=== PATIENT | female | born 1955 | race Asian ===

== ENCOUNTER 2016-03-05 14:12 | Emergency (ER) | payer OTHER ==
[~2016-03-05] VITALS: Ht 167.6 cm; Wt 73.5 kg
[~2016-03-05 14:12] MED LIST: ACET7.5T70 PO; ALBUTEROL0.083 % IN; ALLEGRA ALRG180 M1 OR; ALLEGRA PO; AMOX500C85 PO; BENZ100C8 PO; CYCL10TA35 PO; DOCU100C10 PO; FLONASE0.05 %; IPRASOL5 IN; KETOROLAC15 MG/ML IJ; LEVO0.2T35 PO; LISI20TA24 PO; MONT10TA PO; PRED20TA27 PO
[2016-03-05 14:44] VITALS: BP 126/73; TEMP 98.4
== END 2016-03-05 15:00 | disposition home or self-care (01) ==
LOC: ED 14:12
DX: R03.1 Nonspecific low blood-pressure reading (principal)

== ENCOUNTER 2016-03-21 10:37 | Outpatient (CLI) | payer OTHER | END 2016-03-21 12:00 | disposition home or self-care (01) | LOC: RAD 10:37 | DX: R06.02 Shortness of breath (principal) ==

== ENCOUNTER 2016-03-28 10:34 | Outpatient (CLI) | payer OTHER | END 2016-03-28 23:02 | disposition home or self-care (01) | LOC: RAD 10:34 | DX: M85.89 Other specified disorders of bone density and structure, multiple sites (principal) ==

== ENCOUNTER 2016-04-25 11:47 | Outpatient (CLI) | payer OTHER | END 2016-04-25 19:53 | disposition home or self-care (01) | LOC: RESP 11:47 | DX: R06.02 Shortness of breath (principal) | CPT/HCPCS: 94664 ==

== ENCOUNTER 2016-05-05 12:45 | Outpatient (CLI) | payer OTHER | END 2016-05-05 21:06 | disposition home or self-care (01) | LOC: RESP 12:45 | DX: R06.09 Other forms of dyspnea (principal) | CPT/HCPCS: 93306 ==

== ENCOUNTER 2016-05-08 10:10 | Outpatient (CLI) | payer OTHER | END 2016-05-08 18:59 | disposition home or self-care (01) | LOC: LABW 10:10 | DX: E03.8 Other specified hypothyroidism (principal) | CPT/HCPCS: 36415; 84436; 84443; 84479 ==

== ENCOUNTER 2016-08-11 09:02 | Outpatient (CLI) | payer OTHER ==
[2016-08-11 11:04] LABS: PLATELET COUNT 253 K/uL (152-353)
[2016-08-11 11:23] LABS: POTASSIUM 3.8 mmol/L (3.6-5.2)
== END 2016-08-11 10:45 | disposition home or self-care (01) ==
LOC: LABW 09:02
DX: R94.2 Abnormal results of pulmonary function studies (principal); E55.9 Vitamin D deficiency, unspecified; M32.8 Other forms of systemic lupus erythematosus; M35.01 Sjogren syndrome with keratoconjunctivitis; M72.2 Plantar fascial fibromatosis; M85.89 Other specified disorders of bone density and structure, multiple sites
CPT/HCPCS: 36415; 80053; 85027; 93306

== ENCOUNTER 2016-09-08 18:59 | Outpatient (CLI) | payer OTHER ==
[2016-09-08 19:20] LABS: PLATELET COUNT 258 K/uL (152-353)
[2016-09-08 19:36] LABS: POTASSIUM 3.6 mmol/L (3.6-5.2)
== END 2016-09-08 20:00 | disposition home or self-care (01) ==
LOC: LABW 18:59
DX: M32.8 Other forms of systemic lupus erythematosus (principal); E55.9 Vitamin D deficiency, unspecified; M35.01 Sjogren syndrome with keratoconjunctivitis; M72.2 Plantar fascial fibromatosis; M85.89 Other specified disorders of bone density and structure, multiple sites
CPT/HCPCS: 80053; 85027

== ENCOUNTER 2016-10-09 14:00 | Outpatient (CLI) | payer OTHER | END 2016-10-09 19:20 | disposition home or self-care (01) | LOC: LABW 14:00 | DX: E03.8 Other specified hypothyroidism (principal) | CPT/HCPCS: 36415; 84439; 84443; 84479 ==

== ENCOUNTER 2016-12-19 10:46 | Outpatient (CLI) | payer OTHER | END 2016-12-19 11:50 | disposition home or self-care (01) | LOC: LABW 10:46 | DX: E03.8 Other specified hypothyroidism (principal) | CPT/HCPCS: 36415; 84436; 84443; 84479 ==

== ENCOUNTER 2017-04-13 11:01 | Outpatient (CLI) | payer OTHER ==
[2017-04-13 11:57] LABS: PLATELET COUNT 249 K/uL (152-353)
[2017-04-13 12:23] LABS: POTASSIUM 3.7 mmol/L (3.6-5.2)
== END 2017-04-13 22:21 | disposition home or self-care (01) ==
LOC: LAB 11:01
PROVIDERS: Nurse Practitioner Family
DX: M25.50 Pain in unspecified joint (principal); K21.9 Gastro-esophageal reflux disease without esophagitis; Z00.00 Encounter for general adult medical examination without abnormal findings; Z79.899 Other long term (current) drug therapy
CPT/HCPCS: 80053; 80061; 82306; 83036; 84436; 84443; 85027

== ENCOUNTER 2017-05-17 11:36 | Outpatient (CLI) | payer OTHER | END 2017-05-17 22:26 | disposition home or self-care (01) | LOC: RAD 11:36 | DX: K59.09 Other constipation (principal); R11.0 Nausea | CPT/HCPCS: 74022 ==

== ENCOUNTER 2017-05-17 12:32 | Day surgery (SDC) | payer OTHER | END 2017-05-17 15:42 | disposition home or self-care (01) | LOC: OR 12:32 | PROC: 0DB68ZZ Excision of Stomach, Via Natural or Artificial Opening Endoscopic (ICD-10-PCS; principal; 2017-05-17) | PROC: 0DB88ZZ Excision of Small Intestine, Via Natural or Artificial Opening Endoscopic (ICD-10-PCS; 2017-05-17) | DX: K29.00 Acute gastritis without bleeding (principal); K21.0 Gastro-esophageal reflux disease with esophagitis; K29.80 Duodenitis without bleeding; R10.13 Epigastric pain; R11.0 Nausea; K59.09 Other constipation | CPT/HCPCS: 74022; J2001; J2704 ==

== ENCOUNTER 2017-05-23 13:55 | Outpatient (CLI) | payer OTHER | END 2017-05-23 21:58 | disposition home or self-care (01) | LOC: RAD 13:55 | DX: M32.8 Other forms of systemic lupus erythematosus (principal); R06.02 Shortness of breath; Z79.52 Long term (current) use of systemic steroids ==

== ENCOUNTER 2017-06-18 14:00 | Outpatient (CLI) | payer OTHER | END 2017-06-18 19:32 | disposition home or self-care (01) | LOC: LABW 14:00 | DX: E03.8 Other specified hypothyroidism (principal) | CPT/HCPCS: 84436; 84443; 84479 ==

== ENCOUNTER 2017-07-26 18:41 | Emergency (ER) | payer OTHER ==
[~2017-07-26] VITALS: Ht 167.6 cm; Wt 67.1 kg
[2017-07-26 19:08] LABS: PLATELET COUNT 233 K/uL (152-353)
[2017-07-26 19:19] LABS: POTASSIUM 3.6 mmol/L (3.6-5.2)
[2017-07-26 21:14] VITALS: BP 169/80; TEMP 98.7
== END 2017-07-26 20:42 | disposition home or self-care (01) ==
LOC: ED 18:41
DX: R06.09 Other forms of dyspnea (principal)
CPT/HCPCS: 36415; 80053; 83735; 83880; 85027; 85379; 93005; 94664; 99284

== ENCOUNTER 2017-08-03 10:35 | Emergency (ER) | payer OTHER ==
[~2017-08-03] VITALS: Ht 167.6 cm; Wt 67.1 kg
[2017-08-03 15:35] VITALS: BP 135/74; TEMP 98.2
== END 2017-08-03 15:57 | disposition home or self-care (01) ==
LOC: ED 10:35
DX: R06.02 Shortness of breath (principal); R63.4 Abnormal weight loss; N28.89 Other specified disorders of kidney and ureter; E03.8 Other specified hypothyroidism; I10 Essential (primary) hypertension
CPT/HCPCS: 36415; 82550; 84443; 84484; 93005; 99283; Q9963

== ENCOUNTER 2017-08-29 11:32 | Outpatient (CLI) | payer OTHER | END 2017-08-29 23:47 | disposition home or self-care (01) | LOC: LABW 11:32 | DX: E03.9 Hypothyroidism, unspecified (principal) | CPT/HCPCS: 36415; 84436; 84443; 84479 ==

== ENCOUNTER 2017-09-19 14:37 | Emergency (ER) | payer OTHER ==
[~2017-09-19] VITALS: Ht 167.6 cm; Wt 63.5 kg
[2017-09-19 14:45] VITALS: TEMP 97.7
[2017-09-19 16:49] LABS: POTASSIUM 4.1 mmol/L (3.6-5.2)
[2017-09-19 17:03] LABS: PLATELET COUNT 260 K/uL (152-353)
[2017-09-19 17:53] VITALS: BP 122/88
== END 2017-09-19 17:53 | disposition home or self-care (01) ==
LOC: ED 14:37
DX: E05.80 Other thyrotoxicosis without thyrotoxic crisis or storm (principal)
CPT/HCPCS: 36415; 80053; 81000; 84443; 85027; 93005; 99283

== ENCOUNTER 2017-09-25 13:02 | Outpatient (CLI) | payer OTHER ==
[2017-09-25 13:44] LABS: PLATELET COUNT 246 K/uL (152-353)
[2017-09-25 14:02] LABS: POTASSIUM 4.1 mmol/L (3.6-5.2)
== END 2017-09-25 21:16 | disposition home or self-care (01) ==
LOC: LAB 13:02
PROVIDERS: Nurse Practitioner Family
DX: M25.50 Pain in unspecified joint (principal); R11.0 Nausea; G89.29 Other chronic pain; Z00.00 Encounter for general adult medical examination without abnormal findings; R63.4 Abnormal weight loss; Z79.899 Other long term (current) drug therapy
CPT/HCPCS: 80053; 80061; 83036; 84436; 84443; 85027

== ENCOUNTER 2017-11-12 18:11 | Emergency (ER) | payer OTHER ==
[~2017-11-12] VITALS: Ht 167.6 cm; Wt 63.5 kg
[2017-11-12 18:55] LABS: PLATELET COUNT 254 K/uL (152-353)
[2017-11-12 19:05] LABS: POTASSIUM 3.8 mmol/L (3.6-5.2); SODIUM 143 mmol/L (136-145)
[2017-11-12 20:11] VITALS: BP 145/85; TEMP 97.7
== END 2017-11-12 20:11 | disposition home or self-care (01) ==
LOC: ED 18:11
PROVIDERS: Emergency Medicine
DX: S16.1XXA Strain of muscle, fascia and tendon at neck level, initial encounter (principal); M54.12 Radiculopathy, cervical region; R00.0 Tachycardia, unspecified
CPT/HCPCS: 36415; 80053; 82550; 84484; 85027; 93005; 99284

== ENCOUNTER 2017-11-20 11:12 | Outpatient (CLI) | payer OTHER ==
[2017-11-20 12:44] LABS: PLATELET COUNT 252 K/uL (152-353)
[2017-11-20 12:50] LABS: POTASSIUM 3.6 mmol/L (3.6-5.2)
== END 2017-11-20 19:56 | disposition home or self-care (01) ==
LOC: LABW 11:12
DX: M32.8 Other forms of systemic lupus erythematosus (principal); M35.01 Sjogren syndrome with keratoconjunctivitis; R53.83 Other fatigue; Z79.52 Long term (current) use of systemic steroids; Z79.899 Other long term (current) drug therapy
CPT/HCPCS: 36415; 80053; 81000; 85027; 85651; 86038; 86140; 86160; 86225; 86235; 87088

== ENCOUNTER 2017-11-24 13:17 | Outpatient (CLI) | payer OTHER ==
[2017-11-24 14:16] LABS: PLATELET COUNT 258 K/uL (152-353)
[2017-11-24 14:37] LABS: POTASSIUM 3.4 mmol/L (3.6-5.2)
== END 2017-11-24 19:26 | disposition home or self-care (01) ==
LOC: LABW 13:17
PROVIDERS: Internal Medicine Medical Oncology
DX: D64.9 Anemia, unspecified (principal); E53.8 Deficiency of other specified B group vitamins
CPT/HCPCS: 80053; 82525; 82607; 82728; 82746; 82784; 83010; 83540; 83550; 83883; 84165; 85027; 85044; 86880

== ENCOUNTER 2017-11-29 07:50 | Outpatient (CLI) | payer OTHER ==
[2017-11-29 08:14] LABS: PLATELET COUNT 232 K/uL (152-353)
[2017-11-29 08:59] LABS: POTASSIUM 3.8 mmol/L (3.6-5.2)
== END 2017-11-29 19:12 | disposition home or self-care (01) ==
LOC: LABW 07:50
PROVIDERS: Internal Medicine Endocrinology, Diabetes & Metabolism
DX: D64.9 Anemia, unspecified (principal); Z79.899 Other long term (current) drug therapy; E03.9 Hypothyroidism, unspecified
CPT/HCPCS: 36415; 80053; 84436; 84443; 84479; 85027

== ENCOUNTER 2017-12-08 10:51 | Outpatient (CLI) | payer OTHER | END 2017-12-08 19:28 | disposition home or self-care (01) | LOC: MRI 10:51 | DX: M25.512 Pain in left shoulder (principal); M54.12 Radiculopathy, cervical region ==

== ENCOUNTER 2018-01-02 10:31 | Outpatient (CLI) | payer OTHER | END 2018-01-02 22:25 | disposition home or self-care (01) | LOC: CT 10:31 | DX: D64.9 Anemia, unspecified (principal); R10.84 Generalized abdominal pain; D47.9 Neoplasm of uncertain behavior of lymphoid, hematopoietic and related tissue, unspecified | CPT/HCPCS: 36415; 82565; 84520; Q9963 ==

== ENCOUNTER 2018-04-03 08:45 | Outpatient (CLI) | payer OTHER | END 2018-04-03 23:11 | disposition home or self-care (01) | LOC: MAMMO 08:45 | DX: Z12.31 Encounter for screening mammogram for malignant neoplasm of breast (principal) ==

== ENCOUNTER 2018-05-17 08:46 | Outpatient (CLI) | payer OTHER | END 2018-05-17 19:14 | disposition home or self-care (01) | LOC: CT 08:46 | DX: R63.4 Abnormal weight loss (principal); M54.5 Low back pain | CPT/HCPCS: 36415; 82565; 84520; Q9963 ==

== ENCOUNTER 2018-05-29 16:06 | Outpatient (CLI) | payer OTHER | END 2018-05-29 22:51 | disposition home or self-care (01) | LOC: LABW 16:06 | DX: E03.8 Other specified hypothyroidism (principal) | CPT/HCPCS: 36415; 84436; 84443; 84479 ==

== ENCOUNTER 2019-02-27 21:35 | Emergency (ER) | payer OTHER ==
[~2019-02-27] VITALS: Ht 167.6 cm; Wt 69.9 kg
[2019-02-27 22:46] VITALS: BP 199/98; TEMP 98
== END 2019-02-27 22:46 | disposition home or self-care (01) ==
LOC: ED 21:35
DX: B02.9 Zoster without complications (principal)
CPT/HCPCS: 96372; 99282; J1885

== ENCOUNTER 2020-07-28 17:25 | Outpatient (CLI) | payer OTHER | END 2020-07-28 19:29 | disposition home or self-care (01) | LOC: LAB 17:25 → LABW 17:25 | PROVIDERS: ATTEND Internal Medicine Endocrinology, Diabetes & Metabolism | DX: E03.8 Other specified hypothyroidism (principal) | CPT/HCPCS: 36415; 84436; 84443; 84479 ==

== ENCOUNTER → 2020-11-22 | Outpatient (CLI) | payer OTHER | LOC: LABW 17:34 | PROVIDERS: ATTEND Internal Medicine Endocrinology, Diabetes & Metabolism | DX: E03.8 Other specified hypothyroidism (principal) | CPT/HCPCS: 36415; 84439; 84443 ==

== ENCOUNTER 2021-01-01 04:37 | Emergency (ER) | payer OTHER ==
[~2021-01-01] VITALS: Ht 167.6 cm; Wt 77.1 kg
[2021-01-01 05:34] VITALS: BP 165/94; TEMP 98.2
== END 2021-01-01 05:34 | disposition home or self-care (01) ==
LOC: ED 04:37
DX: J32.8 Other chronic sinusitis (principal); J06.9 Acute upper respiratory infection, unspecified; H61.22 Impacted cerumen, left ear; I10 Essential (primary) hypertension
CPT/HCPCS: 96372; 99283; 99284; J0696; J1100

== ENCOUNTER 2021-01-21 10:22 | Outpatient (CLI) | payer OTHER | END 2021-01-21 18:54 | disposition home or self-care (01) | LOC: LABW 10:22 | PROVIDERS: ATTEND Internal Medicine Endocrinology, Diabetes & Metabolism | DX: E03.8 Other specified hypothyroidism (principal) | CPT/HCPCS: 36415; 84439; 84443 ==

== ENCOUNTER 2021-10-28 10:09 | Outpatient (CLI) | payer OTHER | END 2021-10-28 20:51 | disposition home or self-care (01) | LOC: LABW 10:09 | PROVIDERS: ATTEND Internal Medicine Endocrinology, Diabetes & Metabolism | DX: E03.8 Other specified hypothyroidism (principal) | CPT/HCPCS: 36415; 84439; 84443 ==

== ENCOUNTER 2021-11-08 14:56 | Outpatient (CLI) | payer OTHER | END 2021-11-08 20:15 | disposition home or self-care (01) | LOC: LABW 14:56 | PROVIDERS: ATTEND Internal Medicine Endocrinology, Diabetes & Metabolism | DX: D64.9 Anemia, unspecified (principal) | CPT/HCPCS: 36415; 82607; 82728; 83540; 83550 ==

== ENCOUNTER 2021-11-17 20:56 | Emergency (ER) | payer OTHER ==
[~2021-11-17] VITALS: Ht 167.6 cm; Wt 69.9 kg
[2021-11-17 23:02] VITALS: BP 163/86; TEMP 98.2
== END 2021-11-17 23:02 | disposition home or self-care (01) ==
LOC: ED 20:56
DX: J20.9 Acute bronchitis, unspecified (principal); Z20.822 Contact with and (suspected) exposure to COVID-19
CPT/HCPCS: 87502; 87635; 87651; 99283; U0003

== ENCOUNTER 2022-01-26 08:36 | Outpatient (CLI) | payer OTHER | END 2022-01-26 19:02 | disposition home or self-care (01) | LOC: MAMMO 08:36 | PROVIDERS: ATTEND Nurse Practitioner Primary Care | DX: N64.4 Mastodynia (principal) | CPT/HCPCS: G0279 ==

== ENCOUNTER 2022-03-07 09:47 | Outpatient (CLI) | payer OTHER | END 2022-03-07 19:22 | disposition home or self-care (01) | LOC: RAD 09:47 | PROVIDERS: ATTEND Nurse Practitioner Primary Care | DX: M54.6 Pain in thoracic spine (principal) ==

== ENCOUNTER 2022-08-25 11:22 | Outpatient (CLI) | payer OTHER ==
[2022-08-25 11:46] LABS: PLATELET COUNT 264 K/uL (152-353)
[2022-08-25 12:07] LABS: POTASSIUM 3.8 mmol/L (3.6-5.2)
== END 2022-08-25 19:23 | disposition home or self-care (01) ==
LOC: LABW 11:22
PROVIDERS: ATTEND Nurse Practitioner Family
DX: M54.6 Pain in thoracic spine (principal); R06.02 Shortness of breath
CPT/HCPCS: 36415; 80048; 82550; 82553; 83880; 84484; 85027; 85379; 93005